=== PATIENT | male | born 1985 | race Caucasian/White ===

== ENCOUNTER 2021-01-25 00:27 | Emergency (ER) | payer OTHER, BC ==
[2021-01-25 00:50] LABS: #Basophils 0.1 10x3/uL (0.0-0.2); #Eosinphils 0.2 10x3/uL (0.0-0.5); #Monocytes 0.6 10x3/uL (0.0-1.1); #Neutrophils 5.7 10x3/uL (1.5-8.4); %Basophils 0.7 % (0.0-2.0); %Eosinophils 1.9 % (0.0-6.0); %Lymphocytes 43.1 % (18.0-47.0); %Monocytes 4.9 % (0.0-10.0); %Neutrophils 48.5 % (40.0-75.0); Hemoglobin 13.2 g/dL (13.5-17.5); Mean Corpuscular HGB CONC 35.1 g/dL (32.0-36.0); Mean Corpuscular Hemoglobin 29.9 pg (27.0-33.0); Mean Corpuscular Volume 85.3 fl (81.2-95.1); Platelet Count 254 10x3/uL (150-450); RBC Distribution Width 11.9 % (11.5-14.5); Red Blood Cell (RBC) Count 4.41 10x6/uL (4.32-5.72); White Blood Cell (WBC) Count 11.8 10x3/uL (3.5-10.5)
[2021-01-25 00:53] LABS: ALT (SGPT) 16 U/L (8-55); AST (SGOT) 23 U/L (5-34); Albumin 3.8 g/dL (3.5-5.0); Alkaline Phosphatase 61 U/L (40-110); Anion Gap 16 mmol/L (10-20); BUN (Urea Nitrogen) 13 mg/dL (8.9-20.6); Bilirubin, Total 0.3 mg/dL (0.2-1.2); Calc. Creatinine Clearance 0 mL/min (70-130); Calcium 8.1 mg/dL (7.8-10.44); Carbon Dioxide 20 mmol/L (22-29); Chloride 106 mmol/L (98-107); Globulin 2.8 g/dL (2.4-3.5); Glucose 193 mg/dL (70-105); Lipase 15 U/L (8-78); Protein, Total 6.6 g/dL (6.0-8.3); Sodium 139 mmol/L (136-145)
[2021-01-25 01:09] LABS: Alcohol 91 mg/dL (Less than 10); Salicylate Less than 8.0 mg/dL (15.0-30.0)
[2021-01-25 01:12] LABS: Potassium 2.7 mmol/L (3.5-5.1)
[2021-01-25] MEDS ORDERED: NS 0.9% w/ 40 MEQ KCL 1,000 ML IV ONE (01:21)
[2021-01-25] MEDS ORDERED: Midazolam HCl 2 mg/2 ml Vial ONE ×4 (01:41→04:30)
[2021-01-25] MEDS ORDERED: Lidocaine 1% w/Epinephrine 1:100K 20 ML VIAL ONE (02:27)
[2021-01-25] MEDS ORDERED: Ketamine 50 MG/ML (10ML VIAL) ONE (02:37)
[2021-01-25] MEDS ORDERED: Boostrix 0.5 ML (Tdap) VIAL ONE (02:48)
[2021-01-25 03:20] LABS: SARS-CoV-2 NAA Rapid Test Not Detected (NotDetected)
[2021-01-25 03:44] LABS: Bilirubin Neg (Negative); Blood, Urine Negative (Negative); Clarity Clear (Clear); Glucose, Urine (Dipstick) >=1000 mg/dL (Negative); Ketone, Urine Negative (Negative); Leukocyte Negative (Negative); Nitrite Negative (Negative); Protein, Urine (Dipstick) Negative (Neg-Trace); Specific Gravity, Urine 1.015 (1.002-1.036); Urobilinogen Normal mg/dL (Less than 2)
[2021-01-25 03:54] LABS: Amphetamine Detected (NotDetected); Barbiturates Screen Not Detected (NotDetected); Benzodiazepine Screen Not Detected (NotDetected); Cocaine Metabolite Screen Not Detected (NotDetected); Methadone Not Detected (NotDetected); Methamphetamine Not Detected (NotDetected); Opiate Screen Not Detected (NotDetected); Oxycodone Screen Not Detected (NotDetected); Phencyclidine (PCP) Not Detected (NotDetected); THC/Cannabinoid Screen Not Detected (NotDetected); Tricyclic Screen Not Detected (NotDetected)
[2021-01-25 04:14] LABS: Lactic Acid 2.8 mmol/L (0.5-2.2)
== END 2021-01-25 04:52 | disposition short-term general hospital (02) ==
LOC: MERGE 00:27 → CSHERS 00:27
DX: S02.412A LeFort II fracture, initial encounter for closed fracture (principal); S51.812A Laceration without foreign body of left forearm, initial encounter; S00.11XA Contusion of right eyelid and periocular area, initial encounter; R41.82 Altered mental status, unspecified; V03.19XA Pedestrian with other conveyance injured in collision with car, pick-up truck or van in traffic accident, initial encounter
CPT/HCPCS: 0240U; 12002; 36415; 51701; 70450; 70486; 71045; 71260; 72125; 72170; 74177; 80053; 80306; 80307; 81003; 83605; 83690; 85025; 86850; 86900; 86901; 90471; 90715; 96365; 96367; 96375; 96376; G0390; J0690; J2250; J3480